=== PATIENT | female | born 1965 | race Two or more races ===

== ENCOUNTER 2023-09-29 12:32 | Inpatient (IN) | payer OTHER ==
[~2023-09-29] VITALS: Ht 160 cm; Wt 59.0 kg
[~2023-09-29 12:32] MED LIST: AMOX1TAB12 PO; PERCOCET 5/321 UDTAB PO; SYNTHROID112 MCG PO; SYNTHROID300 MCG; TAMS0.4C PO
[2023-09-29] MEDS ORDERED: SYNTHROID200 MCG PO (12:43)
--- NOTE | 2023-09-29 13:00 | NUR ---
PTE ALERTA Y ORIENTADA X3 REFIERE VENIR POR DOLOR DE ESPALDA, SIN EMBARGO, AL MOMENTO DE TRIAGE PTE COMUNICA QUE PADECE DE ENFISEMA PULMONAR. SE LE CRYSTAL SV Y PTE SATURA EN 88%, SE REALIZA EKG POR PROTOCOLO DE TRIAGE Y SE PRESENTA AL DR. LIM, QUIEN INDICA UBICAR PTE EN PARAM. ADICIONAL, PTE REFIERE DOLOR EN HERNIA UBICADA EN LADO SUPERIOR DERECHO DEL ABDOMEN. SE MIDEN SYLVIA DE SV Y SE UBICA.
[2023-09-29] MEDS ORDERED: FAMOTIDINE/PF 20 MG in 0.9 % SODIUM CHLORIDE 8 ML IV PUSH STA (13:24)
[2023-09-29] MEDS ORDERED: SODIUM CHLORIDE 0.45 % 1,000 ML IV SCH (13:30)
[2023-09-29] MEDS ORDERED: KETOROLAC TROMETHAMINE 15 MG VIAL IV ONE (13:30)
--- NOTE | 2023-09-29 13:46 | NUR ---
SE ORIENTA PTE SOBRE TX A SEGUIR,EL CUAL REFIERE ENTENDER. SE COLECTAN MUESTRAS Y SE CANALIZA PTE UTILIZANDO MEDIDAS ASEPTICAS. SE ADM.MEDICAMENTOS DAT ORDEN MEDICA. PEND CT ABD/PEL CON CONTRASTE PO.
[2023-09-29 14:02] LABS: HEMOGLOBIN 11.4 g/dL (12.0-15.00); MEAN CELL VOLUME 96.5 fL (80.00-100.00); MEAN CORPUSCULAR HEMOGLOBIN 32.5 pg (27.00-32.0); MEAN CORPUSCULAR HGB CONC 33.7 g/dl (32.0-36.0); RED BLOOD COUNT 3.52 M/uL (4.00-6.00); RED CELL DISTRIBUTION WIDTH 14.8 % (11.5-14.5)
[2023-09-29 14:40] LABS: ALBUMIN 3.2 gm/dL (3.4-5.0); BILIRUBIN TOTAL 0.89 mg/dL (0.3-1.2); CALCIUM 8.9 mg/dL (8.5-10.1); CREATININE SERUM 0.45 mg/dL (0.55-1.02); GFR 143.1; GLOBULINA 4.4 G/DL (2.4-3.5); POTASSIUM 3.57 mEq/L (3.5-5.1); TOTAL PROTEIN 7.6 gm/dL (6.4-8.2)
[2023-09-29 14:49] LABS: PLATELET COUNT 126 K/uL (150-450)
[2023-09-29 15:05] LABS: INR 1.05; PARTIAL THROMBOPLASTIN TIME 32.9 SECONDS (22.0-34.0)
--- NOTE | 2023-09-29 15:41 | NUR ---
PTE TOMANDO CONTRASTE AL MOMENTO DE LA PRETTY.
[2023-09-29] MEDS ORDERED: PIPERACILLIN/TAZOBACTAM SODIUM 3.375 GM in DEXTROSE 5 % IN WATER 100 ML IV SCH (19:47)
[2023-09-29] MEDS ORDERED: IPRATROPIUM BROMIDE 0.5 MG/2.5 ML AMPUL.NEB IH SCH (19:53)
[2023-09-29] MEDS ORDERED: MEPERIDINE HCL/PF 25 MG/ML VIAL IM PRN (20:00)
[2023-09-29] MEDS ORDERED: ONDANSETRON HCL 4 MG in 0.9 % SODIUM CHLORIDE 50 ML IV PRN (20:00)
[2023-09-29] MEDS ORDERED: ACETAMINOPHEN 500 MG GEL..CAP PO PRN (20:00)
[2023-09-29] MEDS ORDERED: SIMETHICONE 125 MG CAPSULE PO ONE (21:30)
[2023-09-30] MEDS ORDERED: LEVOTHYROXINE SODIUM 200 MCG TABLET PO SCH (06:00)
[2023-09-30] MEDS ORDERED: PANTOPRAZOLE SODIUM 40 MG/VIAL VIAL IV SCH (09:00)
[2023-09-30 10:07] LABS: URINE BACTERIA 152.4 uL (0.0-1933); URINE EPITHELIAL CELLS 7.4 uL (0.0-38.8); URINE WBC 12.2 uL (0.0-23.2)
[2023-09-30 11:01] LABS: PH,URINE 6.5 (5.0-8.0); URINE APPEARANCE Clear; URINE BILIRRUBIN Negative (NEGATIVE); URINE BLOOD Negative; URINE COLOR Yellow; URINE GLUCOSE Negative (NEGATIVE); URINE LEUKOCYTE Negative; URINE NITRATE Negative
[2023-09-30 11:07] LABS: URINE PROTEIN 100 (NEGATIVE)
== END 2023-10-01 12:55 | disposition home or self-care (01) | DRG 394 ==
LOC: ER 12:33 → MEDJ 20:22
PROVIDERS: General Practice; ADMIT Internal Medicine; ATTEND Internal Medicine
PROC: BW21YZZ Computerized Tomography (CT Scan) of Abdomen and Pelvis using Other Contrast (ICD-10-PCS; principal; 2023-09-29)
PROC: 3E0F7GC Introduction of Other Therapeutic Substance into Respiratory Tract, Via Natural or Artificial Opening (ICD-10-PCS; 2023-09-29)
DX: K43.9 Ventral hernia without obstruction or gangrene (principal); D68.01 Von Willebrand disease, type 1; J44.1 Chronic obstructive pulmonary disease with (acute) exacerbation; J43.8 Other emphysema